=== PATIENT | male | born 1970 | race Caucasian/White ===

== ENCOUNTER 2022-08-23 14:38 | Emergency (ER) | payer OTHER ==
[~2022-08-23] VITALS: Ht 182.9 cm; Wt 94.0 kg
[2022-08-23] MEDS ORDERED: PENICILLN VK500 MG PO (15:57)
[2022-08-23] MEDS ORDERED: TRAMADOL HYDROC50 M1 PO (15:57)
[2022-08-23] MEDS ORDERED: NAPROXEN500 MG PO (15:57)
[2022-08-23 16:12] VITALS: BP 157/106
== END 2022-08-23 16:12 | disposition home or self-care (01) | DRG 159 ==
LOC: ED 14:38
DX: K04.7 Periapical abscess without sinus (principal)